=== PATIENT | male | born 1965 | race Hispanic/Latino ===

== ENCOUNTER 2024-01-15 12:15 | Emergency (ER) | payer BC ==
--- NOTE | 2024-01-15 13:32 | RAD REPORT ---
EXAMINATION: ONE VIEW CHEST XR CLINICAL INDICATION: Male, 58 years old.syncope TECHNIQUE: 1 View, AP supine, X-ray of the chest was performed. [id number]. COMPARISON: No prior exam. FINDINGS: Lungs and pleura: Clear lungs. No effusion. Heart and mediastinum: Normal heart size. Unremarkable mediastinal contours. Osseous structures: No acute abnormality. Tubes/lines: None Other: None. IMPRESSION: No acute intrathoracic abnormality.
[2024-01-15 13:34] LABS: Absolute Eosinophils 0.1 K/uL (0-0.5); Absolute Lymphocytes (CBC) 1.4 K/uL (0.7-4.9); Absolute Monocytes 0.6 K/uL (0.1-1.3); Absolute Neutrophil 5.9 K/uL (1.8-8.0); Basophils % 0.3 % (0-1.3); Eosinophils % 0.8 % (0-4.4); Hematocrit 40.8 % (39.6-49.0); Hemoglobin 13.6 g/dL (13.6-17.9); Lymphocytes % 17.2 % (15.3-44.8); MCH 30.5 pg (27.0-35.0); MCHC 33.2 g/dL (32.0-36.0); MPV 9.6 fL (7.6-11.3); Monocytes % 7.2 % (3.3-12.3); Neutrophils % 74.5 % (41.7-73.7); Platelets 229 thou/uL (152-406); RBC Red Blood Cell Count 4.44 M/uL (4.33-5.43); Red Cell Distribution Width 14.2 % (12.1-15.2)
[2024-01-15 14:00] LABS: ALT/SGPT 34 U/L (16-61); AST/SGOT 19 U/L (15-37); Albumin 3.3 g/dL (3.4-5.0); Alkaline Phosphatase 86 U/L (45-117); Anion Gap 9.3 mEq/L (5.0-15.0); BUN Blood Urea Nitrogen 14 mg/dL (7-18); Bicarbonate 25 mEq/L (21-32); Bilirubin Direct < 0.2 mg/dL (0-0.2); Bilirubin Indirect, Calculated 0.1 mg/dL (0.2-0.8); Bilirubin Total 0.3 mg/dL (0.2-1.0); Globulin 3.4 g/dL (2.3-3.5); Glomerular Filtration Rate 75 ml/min (=/>90); Glucose Level 110 mg/dL (74-106); NT PRO-BNP 12 pg/mL (<125); Potassium 3.3 mEq/L (3.5-5.1); Protein, Total 6.7 g/dL (6.4-8.2); Sodium Level 139 mEq/L (136-145); Troponin High Sensitivity 4.3 pg/mL (<58.9)
--- NOTE | 2024-01-15 14:29 | EDPHYS ---
Physician Documentation [facility] Name: Sunil Colunga Age: 58 yrs Sex: Male : 1965 Arrival Date: 01/15/2024 Time: 12:15 Bed 18 Private MD: ED Physician Alejandro Mckoy HPI: 01/14 15:00 This 58 yrs old Male presents to ER via EMS with complaints of Syncope. rt 15:00 Patient presents to the ED with syncopal event while at the doctor's office after rt having an eye exam. The patient did not hit his head. This episode was only brief. The patient reports that the symptoms have completely resolved, he is no longer dizzy and never had any chest pain, shortness of breath. Symptoms are moderate in severity, no other aggravating or alleviating factors.. Historical: - Allergies: 12:38 No Known Allergies; hb - PMHx: 12:56 Hypertensive disorder; Hypercholesterolemia; ACID REFLUX; db - Immunization history:: Adult Immunizations unknown. - Infectious Disease History:: Denies. - Social history:: Smoking status: Patient denies any tobacco usage or history of. - Family history:: not pertinent. ROS: 15:00 Constitutional: Negative for fever, chills, and weight loss, Cardiovascular: Negative rt for chest pain, palpitations, and edema, Respiratory: Negative for shortness of breath, cough, wheezing, and pleuritic chest pain, Abdomen/GI: Negative for abdominal pain, nausea, vomiting, diarrhea, and constipation, MS/Extremity: Negative for injury and deformity, Skin: Negative for injury, rash, and discoloration, 15:00 Neuro: Positive for syncope, Negative for altered mental status, Exam: 15:00 Constitutional: This is a well developed, well nourished patient who is awake, alert, rt and in no acute distress. Head/Face: Normocephalic, atraumatic. Chest/axilla: Normal chest wall appearance and motion. Nontender with no deformity. No lesions are appreciated. Cardiovascular: Regular rate and rhythm with a normal S1 and S2. No gallops, murmurs, or rubs. Normal PMI, no JVD. No pulse deficits. Respiratory: Lungs have equal breath sounds bilaterally, clear to auscultation and percussion. No rales, rhonchi or wheezes noted. No increased work of breathing, no retractions or nasal flaring. Abdomen/GI: Soft, non-tender, with normal bowel sounds. No distension or tympany. No guarding or rebound. No evidence of tenderness throughout. Skin: Warm, dry with normal turgor. Normal color with no rashes, no lesions, and no evidence of cellulitis. MS/ Extremity: Pulses equal, no cyanosis. Neurovascular intact. Full, normal range of motion. Neuro: Awake and alert, GCS 15, oriented to person, place, time, and situation. Cranial nerves II-XII grossly intact. Motor strength 5/5 in all extremities. Sensory grossly intact. Cerebellar exam normal. Normal gait. 15:00 ECG was reviewed by the Attending Physician. Vital Signs: 12:36 BP 114 / 78; Pulse 55; Resp 16; Temp 97.8; Pulse Ox 96% on R/A; Pain 0/10; hb 13:00 BP 131 / 73; Pulse 58; Resp 18; Pulse Ox 98% on R/A; db 14:00 BP 111 / 71; Pulse 56; Resp 18; Pulse Ox 100% on R/A; db 12:36 Pain Scale: Adult hb MDM: 12:56 Patient medically screened. rt 15:36 Differential Diagnosis: Dysrhythmia, anemia, vasovagal syncope. Data reviewed: vital rt signs, nurses notes, lab test result(s), EKG, radiologic studies. Consideration of Admission/Observation Escalation of care including admission/observation considered. Most likely vasovagal syncope, rest workup is benign save for sinus bradycardia. Instructed patient to follow-up as an outpatient for this. No indications for admission at this time, stable for outpatient care.. Independent interpretation of the following test(s) in the Emergency Department X-Ray: My interpretation is No consolidation seen on interpretation of x-ray images. Test considered but Not performed: CT: Most likely vasovagal syncope, labs, EKG are benign. There is been no head trauma. CT scan of the head is not indicated, low suspicion for CVA, intracranial hemorrhage. Also low suspicion for pulmonary embolus, PE RC negative, CT angiogram is not indicated. Care significantly affected by the following chronic conditions: Hypertension. Counseling: I had a detailed discussion with the patient and/or guardian regarding the historical points, exam findings, and any diagnostic results supporting the discharge/admit diagnosis, lab results, radiology results, the need for outpatient follow up, to return to the emergency department if symptoms worsen or persist or if there are any questions or concerns that arise at home. Response to treatment: the patient's symptoms have resolved after treatment. 01/14 13:07 Order name: Basic Metabolic Panel; Complete Time: 14:02 rt 01/14 13:07 Order name: CBC with Diff; Complete Time: 13:37 rt 01/14 13:07 Order name: LFT's; Complete Time: 14:02 rt 01/14 13:07 Order name: Magnesium; Complete Time: 14:02 rt 01/14 13:07 Order name: NT PRO-BNP; Complete Time: 14:02 rt 01/14 13:07 Order name: Troponin HS; Complete Time: 14:02 rt 01/14 13:07 Order name: TSH; Complete Time: 14:02 rt 01/14 13:07 Order name: XRAY Chest (1 view); Complete Time: 13:37 rt 01/14 13:07 Order name: Cardiac monitoring; Complete Time: 13:20 rt 01/14 13:07 Order name: EKG - Nurse/Tech; Complete Time: 13:41 rt 01/14 13:07 Order name: IV Saline Lock; Complete Time: 13:20 rt 01/14 13:07 Order name: Labs collected and sent; Complete Time: 13:20 rt 01/14 13:07 Order name: O2 Per Protocol; Complete Time: 13:20 rt 01/14 13:07 Order name: O2 Sat Monitoring; Complete Time: 13:20 rt EC:00 Rate is 51 beats/min. Rhythm is regular, Sinus tachycardia with No ectopy. QRS [place] is rt Normal. AK interval is normal. QRS interval is normal. QT interval is normal. No Q waves. T waves are Normal. No ST changes noted. Administered Medications: No medications were administered Disposition Summary: 01/15/24 14:29 Discharge Ordered Notes: Location: Home rt Problem: new rt Symptoms: are resolved rt Condition: Stable rt Diagnosis - Syncope rt Followup: rt - With: Rajat Bar MD - When: 2 - 3 days - Reason: Discharge Instructions: - Discharge Summary Sheet rt - Syncope rt Forms: - Medication Reconciliation Form rt - Antibiotic Education rt - Prescription Opioid Use rt - Patient Portal Instructions rt - Leadership Thank You Letter rt Signatures: Dispatcher [employer] EDMS Rhonda Crowe RN RN hb Penny Daigle RN RN db Alejandro Mckoy MD MD rt Corrections: (The following items were deleted from the chart) 13:08 13:08 BASIC METABOLIC PANEL+C.LAB.BRZ ordered. EDMS EDMS 13:08 13:08 CBC+H.LAB.BRZ ordered. EDMS EDMS 13: 13:08 HEPATIC FUNCTION+C.LAB.BRZ ordered. EDMS EDMS 13: 13:08 MAGNESIUM+C.LAB.BRZ ordered. EDMS EDMS 13: 13:08 PROBNP+C.LAB.BRZ ordered. EDMS EDMS 13: 13:08 Troponin High Sensitivity+C.LAB.BRZ ordered. EDMS EDMS 13: 13:08 THYROID STIMULAT HORMONE+C.LAB.BRZ ordered. EDMS EDMS 13:08 13:08 Chest Single View+RAD.RAD.BRZ ordered. EDMS EDMS
--- NOTE | 2024-01-15 14:29 | ER ---
Nurse's Notes [facility] Name: Sunil Colunga Age: 58 yrs Sex: Male : 1965 Arrival Date: 01/15/2024 Time: 12:15 Bed 18 Private MD: Diagnosis: Syncope Presentation: 01/14 12:36 Chief complaint: EMS states: Syncopal episode while standing in line at [facility]. SB on hb 12 lead. NS 250ml to 20g R hand and ASA 324 mg administered [employer]UL[employer]. Coronavirus screen: At this time, the client does not indicate any symptoms associated with coronavirus-19. Ebola Screen: No symptoms or risks identified at this time. Initial Sepsis Screen: Does the patient meet any 2 criteria? No. Patient's initial sepsis screen is negative. Does the patient have a suspected source of infection? No. Patient's initial sepsis screen is negative. Risk Assessment: Do you want to hurt yourself or someone else? Patient reports no desire to harm self or others. Onset of symptoms was January 15, 2024. 12:36 Method Of Arrival: EMS: [facility] hb 12:36 Acuity: NICOLLE 3 hb 12:55 Chief complaint: Spouse and/or significant other states: STATES PT GOT HOT STARED OFF db INTO SPACE AND THEN PASSED OUT. Triage Assessment: 12:56 General: Appears in no apparent distress. comfortable, Behavior is calm, cooperative, db appropriate for age. Pain: Denies pain. Neuro: Level of Consciousness is awake, alert, obeys commands, Oriented to person, place, time, situation, Reports a syncopal episode. Respiratory: Airway is patent Respiratory effort is even, unlabored, Respiratory pattern is regular, symmetrical. Historical: - Allergies: 12:38 No Known Allergies; hb - PMHx: 12:56 Hypertensive disorder; Hypercholesterolemia; ACID REFLUX; db - Immunization history:: Adult Immunizations unknown. - Infectious Disease History:: Denies. - Social history:: Smoking status: Patient denies any tobacco usage or history of. - Family history:: not pertinent. Screenin:58 [facility] ED Fall Risk Assessment (Adult) History of falling in the last 3 months, db including since admission Yes- physiologic fall (2 pts) Confusion or Disorientation No (0 pts) Intoxicated or Sedated No (0 pts) Impaired Gait No (0 pts) Mobility Assist Device Used No (0 pt) Altered Elimination No (0 pt) Score/Fall Risk Level 0 - 2 = Low Risk Oriented to surroundings, Maintained a safe environment. Abuse screen: Denies threats or abuse. Denies injuries from another. Nutritional screening: No deficits noted. Tuberculosis screening: No symptoms or risk factors identified. Assessment: 12:57 Reassessment: SEE TRIAGE FOR INITIAL ASSESSMENT. General: Appears in no apparent db distress. comfortable, Behavior is calm, cooperative. Neuro: Level of Consciousness is awake, alert, obeys commands, Oriented to person, place, time, situation. Cardiovascular: Rhythm is sinus rhythm. 13:30 Reassessment: Patient appears in no apparent distress at this time. Patient and/or db family updated on plan of care and expected duration. Pain level reassessed. Patient is alert, oriented x 3, equal unlabored respirations, skin warm/dry/pink. 14:31 Reassessment: Patient appears in no apparent distress at this time. Patient and/or db family updated on plan of care and expected duration. Pain level reassessed. Patient is alert, oriented x 3, equal unlabored respirations, skin warm/dry/pink. Patient states feeling better. Patient states symptoms have improved. Vital Signs: 12:36 BP 114 / 78; Pulse 55; Resp 16; Temp 97.8; Pulse Ox 96% on R/A; Pain 0/10; hb 13:00 BP 131 / 73; Pulse 58; Resp 18; Pulse Ox 98% on R/A; db 14:00 BP 111 / 71; Pulse 56; Resp 18; Pulse Ox 100% on R/A; db 12:36 Pain Scale: Adult hb ED Course: 12:36 Patient arrived in ED. hb 12:38 Triage completed. hb 12:49 Penny Daigle, RN is Primary Nurse. db 12:50 Arm band placed on Patient placed in an exam room. db 12:53 Alejandro Mckoy MD is Attending Physician. rt 12:58 Maintain EMS IV. Dressing intact. Good blood return noted. Site clean \T\ dry. Gauge \T\ db site: 20 G RAC. 13:18 XRAY Chest (1 view) In Process Unspecified. EDMS 13:41 Initial lab(s) drawn, EKG done. db 14:28 Rajat Bar MD is Referral Physician. rt 14:31 Patient has correct armband on for positive identification. Bed in low position. Call db light in reach. Side rails up X 1. DISCHARGE AND FOLLOWOUP. Client placed on continuous cardiac and pulse oximetry monitoring. NIBP monitoring applied. property assessment monitor on. Pulse ox on. NIBP on. Warm blanket given. Pillow given. 14:39 Provided Education on: DISCHARGE FOLLOWUP. db 14:39 No provider procedures requiring assistance completed. IV discontinued, intact, db bleeding controlled, No redness/swelling at site. Administered Medications: No medications were administered Medication: 14:30 VIS not applicable for this client. db Outcome: 14:29 Discharge ordered by . rt 14:39 Discharged to home ambulatory, with family, db 14:39 Condition: stable 14:39 Discharge instructions given to patient, Instructed on discharge instructions, follow up and referral plans. 14:44 Patient left the ED. db Signatures: Dispatcher [employer] EDMS Rhonda Crowe RN RN Penny Daigle RN RN db [place], Ryan, MD MD rt
[2024-01-15 14:50] VITALS: TEMP 97.8
[2024-01-15 14:52] VITALS: BP 111/71; O2SAT 100
--- NOTE | 2024-01-17 11:58 | EKG ---
Test Date: 2024-01-15 Test Time: 13:32:01 [employer] Arc: RALF MEASUREMENT RESULTS: Intervals: Rate: 51 NC: 182 QRSD: 88 QT: 452 QTc: 416 [place]: P: 31 NC: 182 QRS: 52 T: 76 INTERPRETIVE STATEMENTS: Sinus bradycardia Otherwise normal ECG Compared to ECG 03/12/1999 19:54:00 Sinus rhythm no longer present Electronically Signed On 01-17-24 11:53:29 CDT by Patrick Calabrese
== END 2024-01-15 14:44 | disposition home or self-care (01) ==
LOC: ER 12:15
DX: R55 Syncope and collapse (principal); I10 Essential (primary) hypertension
CPT/HCPCS: 36415; 71045; 80048; 80076; 83735; 83880; 84443; 84484; 85025; 93005; 99284